=== PATIENT | male | born 1965 | race Caucasian/White ===

== ENCOUNTER 2018-05-25 01:15 | Emergency (ER) | payer BC ==
[~2018-05-25] VITALS: Ht 172.7 cm; Wt 74.8 kg
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
--- NOTE | 2018-05-25 03:02 | NUR ---
Patient discharged to home in stable conditon. Written and verbal after care instructions given. Patient verbalizes understanding of instructions. Ambulated from ER with stable gait. All belongings with patient.
[2018-05-25 03:04] VITALS: BP 141/87
== END 2018-05-25 03:04 | disposition home or self-care (01) ==
LOC: ER 01:19
DX: M25.551 Pain in right hip (principal); F17.200 Nicotine dependence, unspecified, uncomplicated; V23.4XXA Motorcycle driver injured in collision with car, pick-up truck or van in traffic accident, initial encounter; Y93.89 Activity, other specified; Y92.89 Other specified places as the place of occurrence of the external cause; Y99.8 Other external cause status
CPT/HCPCS: 72170; 73502; A4663